=== PATIENT | male | born 1995 | race American Indian/Alaskan Native ===

== ENCOUNTER 2021-06-14 00:16 | Emergency (ER) | payer SELFPAY ==
[2021-06-14] MEDS ORDERED: ONDANSETRON 4 MG/2 ML INJ IV ONE (01:21)
[2021-06-14 01:48] LABS: Bilirubin,Urine NEG (Negative); Blood,Urine NEG (Negative); Color,Urine Straw (Yellow); Protein,Urine <15 mg/dL mg/dL (Negative); RBC,Urine < 1.0 /HPF (0.0-6.0); Urobilinogen,Urine < 2.0 mg/dL (<2.0)
--- NOTE | 2021-06-14 01:56 | Emergency Department Report ---
HPI - General Chief Complaint: Nausea/Vomiting/Diarrhea Time Seen by Provider: 06/14/21 01:24 - HPI HPI: MSE 1 Patient is a 26-year-old male present with a chief complaint of bizarre behavior. The patient is currently at [facility] for alcohol detox. Staff at [facility] states that this evening the patient intentionally laid down on the floor and then started drooling. Staff states that the patient was responsive during this entire time answering questions and never lost consciousness. While the patient was supine on the floor staff states they measure blood pressure 97/67 however later with standing up his BP was 137/67. Patient had complained of pain all over his body but would not give any specifics. Staff states they contacted the physician who instructed them to send the patient to the ED for evaluation. The patient is very poor historian and states that he was sent to the emergency department because his blood pressure was elevated he has been having pain all over and he passed out. Patient states he has had low back pain for over a month since he has been incarcerated but does not recall any specific injury ED Past Medical Hx - Past Medical History Previous Medical History?: Yes Hx Hypertension: Yes Hx Psychiatric Treatment: (Psychosis) Hx Asthma: Yes - Family History Family history: no significant - Social History Smoking Status: Current Every Day Smoker (1/2 pack/day) Substance Use Type: Alcohol (Occasion), Cocaine, Marijuana, Other (Ecstasy, Mollie) - Medications Home Medications: Home Medications Medication Instructions Recorded Confirmed Last Taken Type HYDROcodone/APAP 5-325 [Gracey 1 - 2 each PO Q6HR PRN #10 tablet 06/14/21 Unknown Rx 5/325] Ibuprofen [Motrin 800 MG tab] 800 mg PO Q8HR PRN #20 tablet 06/14/21 Unknown Rx ED Review of Systems ROS: Stated complaint: ELEVATED BP/N/V/BODY ACHES Other details as noted in HPI Constitutional: no symptoms reported Eyes: denies: eye pain ENT: denies: throat pain Respiratory: no symptoms reported Cardiovascular: denies: chest pain Endocrine: no symptoms reported Gastrointestinal: denies: abdominal pain Musculoskeletal: back pain Neurological: denies: headache Physical Exam - Physical Exam Vital Signs: Vital Signs 06/14/21 00:24 Temperature 97.4 F L Pulse Rate 103 H Respiratory 18 Rate Blood Pressure 166/93 [Left] O2 Sat by Pulse 99 Oximetry Physical Exam: GENERAL: The patient is well-developed well-nourished male sitting in wheelchair not appearing to be in acute distress. [] HEENT: Normocephalic. Atraumatic. Extraocular motions are intact. Patient has moist mucous membranes. NECK: Supple. No meningitic signs are noted. There is no adenopathy noted. CHEST/LUNGS: Clear to auscultation. There is no respiratory distress noted. HEART/CARDIOVASCULAR: Regular. There is no tachycardia. There is no gallop rub or murmur. ABDOMEN: Abdomen is soft, nontender. Patient has normal bowel sounds. There is no abdominal distention. SKIN: There is no rash. There is no edema. There is no diaphoresis. NEURO: The patient is awake, alert, and oriented. The patient is cooperative. The patient has no focal neurologic deficits. The patient has normal speech. Cranial nerves II through XII grossly intact. GCS 15 MUSCULOSKELETAL: There is no evidence of acute injury. ED Course Vital Signs 06/14/21 00:24 Temperature 97.4 F L Pulse Rate 103 H Respiratory 18 Rate Blood Pressure 166/93 [Left] O2 Sat by Pulse 99 Oximetry ED Medical Decision Making - Lab Data Result diagrams: 06/14/21 01:37 06/14/21 01:37 Laboratory Tests 06/14/21 06/14/21 06/14/21 01:37 01:37 01:37 WBC 7.4 RBC 4.23 Hgb 13.0 Hct 39.8 MCV 94 MCH 31 MCHC 33 RDW 14.0 Plt Count 326 Lymph % (Auto) 22.7 Miller % (Auto) 13.9 H Eos % (Auto) 0.9 Baso % (Auto) 0.5 Lymph # (Auto) 1.7 Miller # (Auto) 1.0 H Eos # (Auto) 0.1 Baso # (Auto) 0.0 Seg Neutrophils % 62.0 Seg Neutrophils # 4.6 PT INR Sodium 135 L Potassium 4.7 Chloride 98.5 Carbon Dioxide 27 Anion Gap 14 BUN 12 Creatinine 0.7 L Estimated GFR > 60 BUN/Creatinine Ratio 17 Glucose 104 H Calcium 10.1 Total Bilirubin < 0.20 AST 28 ALT 35 Alkaline Phosphatase 99 Total Creatine Kinase 421 H NT-Pro-B Natriuret Pep 7.47 Total Protein 7.2 Albumin 4.5 Albumin/Globulin Ratio 1.7 Lipase 28 Urine Color Straw Urine Turbidity Clear Urine pH 8.0 H Ur Specific Trevor 1.009 Urine Protein <15 mg/dl Urine Glucose (UA) Neg Urine Ketones Neg Urine Blood Neg Urine Nitrite Neg Urine Bilirubin Neg Urine Urobilinogen < 2.0 Ur Leukocyte Esterase Neg Urine WBC (Auto) 1.0 Urine RBC (Auto) < 1.0 Salicylates Urine Opiates Screen Urine Methadone Screen Acetaminophen Ur Barbiturates Screen Ur Phencyclidine Scrn Ur Amphetamines Screen U Benzodiazepines Scrn Urine Cocaine Screen U Marijuana (THC) Screen Drugs of Abuse Note Plasma/Serum Alcohol 06/14/21 06/14/21 06/14/21 01:37 01:37 01:37 WBC RBC Hgb Hct MCV MCH MCHC RDW Plt Count Lymph % (Auto) Miller % (Auto) Eos % (Auto) Baso % (Auto) Lymph # (Auto) Miller # (Auto) Eos # (Auto) Baso # (Auto) Seg Neutrophils % Seg Neutrophils # PT INR Sodium Potassium Chloride Carbon Dioxide Anion Gap BUN Creatinine Estimated GFR BUN/Creatinine Ratio Glucose Calcium Total Bilirubin AST ALT Alkaline Phosphatase Total Creatine Kinase NT-Pro-B Natriuret Pep Total Protein Albumin Albumin/Globulin Ratio Lipase Urine Color Urine Turbidity Urine pH Ur Specific Trevor Urine Protein Urine Glucose (UA) Urine Ketones Urine Blood Urine Nitrite Urine Bilirubin Urine Urobilinogen Ur Leukocyte Esterase Urine WBC (Auto) Urine RBC (Auto) Salicylates < 0.3 L Urine Opiates Screen Urine Methadone Screen Acetaminophen 5.0 L Ur Barbiturates Screen Ur Phencyclidine Scrn Ur Amphetamines Screen U Benzodiazepines Scrn Urine Cocaine Screen U Marijuana (THC) Screen Drugs of Abuse Note Plasma/Serum Alcohol < 0.01 06/14/21 06/14/21 01:42 Unknown WBC RBC Hgb Hct MCV MCH MCHC RDW Plt Count Lymph % (Auto) Miller % (Auto) Eos % (Auto) Baso % (Auto) Lymph # (Auto) Miller # (Auto) Eos # (Auto) Baso # (Auto) Seg Neutrophils % Seg Neutrophils # PT 11.6 L INR 0.76 L Sodium Potassium Chloride Carbon Dioxide Anion Gap BUN Creatinine Estimated GFR BUN/Creatinine Ratio Glucose Calcium Total Bilirubin AST ALT Alkaline Phosphatase Total Creatine Kinase NT-Pro-B Natriuret Pep Total Protein Albumin Albumin/Globulin Ratio Lipase Urine Color Urine Turbidity Urine pH Ur Specific Trevor Urine Protein Urine Glucose (UA) Urine Ketones Urine Blood Urine Nitrite Urine Bilirubin Urine Urobilinogen Ur Leukocyte Esterase Urine WBC (Auto) Urine RBC (Auto) Salicylates Urine Opiates Screen Negative Urine Methadone Screen Negative Acetaminophen Ur Barbiturates Screen Negative Ur Phencyclidine Scrn Negative Ur Amphetamines Screen Negative U Benzodiazepines Scrn Negative Urine Cocaine Screen Positive U Marijuana (THC) Screen Positive Drugs of Abuse Note Disclamer Plasma/Serum Alcohol - Radiology Data Radiology results: report reviewed (CT head, lumbar spine x-ray), image reviewed (CT head, lumbar spine x-ray) interpreted by me: Lumbar spine x-ray-no acute fracture [facility] [address] [place] [address] Cat Scan Report Signed Patient: FLORY MONTES MR#: [id number] : 1995 Acct:[id number] Age/Sex: 26 / M ADM Date: 06/14/21 Loc: ED Attending Dr: Ordering Physician: JOSE MARIA GONZÁLES MD Date of Service: 06/14/21 Procedure(s): CT head/brain wo con Accession Number(s): [id number] cc: JOSE MARIA GONZÁLES MD CT HEAD WITHOUT CONTRAST INDICATION / CLINICAL INFORMATION: Altered mental status. TECHNIQUE: All CT scans at this location are performed using CT dose reduction for ALARA by means of automated exposure control. COMPARISON: None available. FINDINGS: BRAIN PARENCHYMA: No acute intracranial hemorrhage. No evidence of recent infarct. No mass effect or midline shift. VENTRICULAR SYSTEM/EXTRA-AXIAL SPACES: Ventricles are normal for age. No extra-axial fluid collection. ORBITS: Normal as visualized. SKELETAL SYSTEM/SOFT TISSUES: Normal bones and soft tissues. PARANASAL SINUSES/MASTOID AIR CELLS: No significant abnormality. ADDITIONAL FINDINGS: None. IMPRESSION: 1. No acute intracranial abnormality. Signer Name: Donovan Cardoza MD Signed: 06/14/2021 2:12 AM Workstation Name: [id number] Transcribed By: JUSTIN Dictated By: DONOVAN CARDOZA MD Electronically Authenticated By: DONOVAN CARDOZA MD Signed Date/Time: 06/14/21211 DD/ 0 TD/TT: Print Cancel XR spine lumbosacral 2-3V INDICATION / CLINICAL INFORMATION: Low back pain x1 month. COMPARISON: None available. FINDINGS: BONES/JOINT(S): No acute fracture. Suspected chronic pars defects at L5 without significant listhesis. Alignment is normal. Mild disc space height loss at L5-S1. PARASPINAL SOFT TISSUES:No significant abnormality. Signer Name: Donovan Cardoza MD Signed: 06/14/2021 1:18 AM Workstation Name: [id number] - Medical Decision Making Patient not orthostatic - Differential Diagnosis Psychosis NOS, alcohol withdrawal, electrolyte imbalance, malingering Critical care attestation.: If time is entered above; I have spent that time in minutes in the direct care o f this critically ill patient, excluding procedure time. ED Disposition Clinical Impression: Psychosis, Low back pain, Cocaine abuse Disposition: [address] [place] [address] Is pt being admited?: No Does the pt Need Aspirin: No Condition: Stable Instructions: Chronic Back Pain Additional Instructions: Return to the emergency department should you develop worsening symptoms, inability to tolerate food or liquids, high fever or any other concerns Prescriptions: Ibuprofen [Motrin 800 MG tab] 800 mg PO Q8HR PRN #20 tablet PRN Reason: Pain, Moderate (4-6) HYDROcodone/APAP 5-325 [Gracey 5/325] 1 - 2 each PO Q6HR PRN #10 tablet PRN Reason: Pain Referrals: DIVINA ROSS MD [Staff Physician] - 3-5 Days (Dr. Ross is an orthopedic surgeon. Please follow-up with him for further evaluation) Time of Disposition: 05:00
[2021-06-14 01:57] LABS: Basophils % (Auto) 0.5 % (0.0-1.8); Eosinophils # (Auto) 0.1 K/mm3 (0.0-0.4); Eosinophils % (Auto) 0.9 % (0.0-4.3); Hematocrit 39.8 % (35.5-45.6); Lymphocytes # (Auto) 1.7 K/mm3 (1.2-5.4); Lymphocytes % (Auto) 22.7 % (13.4-35.0); Mean Corpuscular HGB Conc 33 % (32-34); Mean Corpuscular Volume 94 fl (84-94); Monocytes % (Auto) 13.9 % (0.0-7.3); Platelet Count 326 K/mm3 (140-440); Red Blood Count 4.23 M/mm3 (3.65-5.03)
[2021-06-14] MEDS ORDERED: ONDANSETRON 4 MG ODT TAB PO ONE (01:57)
[2021-06-14 01:58] LABS: Amphetamine Screen,Urine Negative; Benzodiazepines Screen,Urine Negative; Methadone Screen,Urine Negative; Opiate Screen,Urine Negative
[2021-06-14 02:06] LABS: INR 0.76 (0.87-1.13)
[2021-06-14 02:09] LABS: Cannabinoid Screen,Urine Positive; Cocaine Screen,Urine Positive
--- NOTE | 2021-06-14 02:17 | Cat Scan Report ---
CT HEAD WITHOUT CONTRAST INDICATION / CLINICAL INFORMATION: Altered mental status. TECHNIQUE: All CT scans at this location are performed using CT dose reduction for ALARA by means of automated exposure control. COMPARISON: None available. FINDINGS: BRAIN PARENCHYMA: No acute intracranial hemorrhage. No evidence of recent infarct. No mass effect or midline shift. VENTRICULAR SYSTEM/EXTRA-AXIAL SPACES: Ventricles are normal for age. No extra-axial fluid collection . ORBITS: Normal as visualized. SKELETAL SYSTEM/SOFT TISSUES: Normal bones and soft tissues. PARANASAL SINUSES/MASTOID AIR CELLS: No significant abnormality. ADDITIONAL FINDINGS: None. IMPRESSION: 1. No acute intracranial abnormality. Signer Name: Milad Cardoza MD Signed: 06/14/2021 2:12 AM Workstation Name: [id number]
--- NOTE | 2021-06-14 02:22 | XRay Report ---
XR spine lumbosacral 2-3V INDICATION / CLINICAL INFORMATION: Low back pain x1 month. COMPARISON: None available. FINDINGS: BONES/JOINT(S): No acute fracture. Suspected chronic pars defects at L5 without significant listhesis . Alignment is normal. Mild disc space height loss at L5-S1. PARASPINAL SOFT TISSUES:No significant abnormality. Signer Name: Milad Cardoza MD Signed: 06/14/2021 2:18 AM Workstation Name: [id number]
[2021-06-14 02:30] LABS: Alanine Aminotransferase 35 units/L (7-56); Albumin 4.5 g/dL (3.9-5); Blood Urea Nitrogen 12 mg/dL (9-20); Calcium 10.1 mg/dL (8.4-10.2); Hemolysis Index 4
[2021-06-14 02:31] LABS: BUN/Creatinine Ratio 17
[2021-06-14] MEDS ORDERED: HYDROcodone/ACETAMINOPHEN 5-325 MG TAB PO ONE (04:20)
[2021-06-14 04:59] VITALS: BP 143/56
== END 2021-06-14 06:08 ==
LOC: ED 00:16
DX: F23 Brief psychotic disorder (principal); M54.50 Low back pain, unspecified; F14.10 Cocaine abuse, uncomplicated; I10 Essential (primary) hypertension; R79.1 Abnormal coagulation profile; J45.909 Unspecified asthma, uncomplicated; F17.200 Nicotine dependence, unspecified, uncomplicated; F12.90 Cannabis use, unspecified, uncomplicated; Z72.89 Other problems related to lifestyle; Z79.899 Other long term (current) drug therapy
CPT/HCPCS: 36415; 70450; 72100; 80053; 80307; 80320; 81001; 82550; 83690; 83880; 85025; 85610; 99285; J3490; G0480; J2405; Q0162